=== PATIENT | female | born 1950 | race Caucasian/White ===

== ENCOUNTER 2017-02-21 05:41 | Inpatient (IN) | payer MEDICARE, MEDICAID ==
[2017-02-21] VITALS (14 sets, daily range): BP systolic 90–124; BP diastolic 47–88
[~2017-02-21] VITALS: Ht 157.5 cm; Wt 81.6 kg
[~2017-02-21 05:41] MED LIST: ACETAMINOPHEN-1 EAC1 ORAL; LEVOTHYROXINE75 MCG ORAL; [UNRECOGNIZED DRUG - MIXTURE] PO
[2017-02-21] MEDS ORDERED: Duramorph PF 5mg/10ml amp ONE (06:39)
[2017-02-21] MEDS ORDERED: Vancomycin 1gm inj IVPB ONE (06:58)
[2017-02-21] MEDS ORDERED: cefOXitin 2gm Inj ONE (06:58)
[2017-02-21] MEDS ORDERED: Ketorolac 30mg Inj ONE (07:00)
[2017-02-21] MEDS ORDERED: Glycopyrrolate 0.2mg/ml 1ml Vial ONE (07:00)
[2017-02-21] MEDS ORDERED: Neostigmine 1mg/ml 10ml Inj ONE (07:00)
[2017-02-21] MEDS ORDERED: fentaNYL 100 mcg/2 mL IV ONE (07:00)
[2017-02-21] MEDS ORDERED: LR 1000ml ONE (07:00)
[2017-02-21] MEDS ORDERED: NS Irrig 1000ml ONE (07:00)
[2017-02-21] MEDS ORDERED: Propofol 200mg/20ml IV ONE (07:00)
[2017-02-21] MEDS ORDERED: Midazolam 2mg/2ml Inj ONE (07:00)
[2017-02-21] MEDS ORDERED: Succinylcholine 20mg/ml 10ml vial ONE (07:00)
[2017-02-21] MEDS ORDERED: Sterile Water Irrig 1000ml IRRIG ONE (07:00)
[2017-02-21] MEDS ORDERED: Morphine Sulfate 10mg/ml Inj ONE (07:00)
[2017-02-21] MEDS ORDERED: Zemuron 50mg/5ml Inj IV ONE (07:00)
--- NOTE | 2017-02-21 07:14 | Pre-Procedure Note/Attestation ---
Pre-Procedure Note/Attestation Complete Prior to Procedure Planned Procedure: not applicable Procedure Narrative: total abdominal hysterectomy and bilateral salpingoopherectomy Indications for Procedure Pre-Operative Diagnosis: large pelvic mass Attestation I attest that I discussed the nature of the procedure; its benefits; risks and complications; and alternatives (and the risks and benefits of such alternatives ), prior to the procedure, with the patient (or the patient's legal help desk representative). I attest that, if there was a reasonable possibility of needing a blood transfusion, the patient (or the patient's legal help desk representative) was given the [facility] standardized written summary, pursuant to the Neymar Jillian Blood Safety Act ([place] Health and Safety Code # 1645, as amended). I attest that I re-evaluated the patient just prior to the surgery and that there has been no change in the patient's H&P, except as documented below: TOMASZ HINSON Feb 21, 2017 07:14
[2017-02-21] MEDS ORDERED: Zolpidem 5mg tab ORAL PRN (07:15)
[2017-02-21] MEDS ORDERED: DiphenhydrAMINE 50mg/ml Inj IVP PRN ×2 (07:15→08:45)
[2017-02-21] MEDS ORDERED: NS Irrig 1000ml IRRIG ONE (07:40)
[2017-02-21] MEDS ORDERED: Albuterol 90mcg Inhaler 8gm INH ONE (08:28)
[2017-02-21] MEDS ORDERED: LR 1000ml 1,000 ML IVLG SCH (08:31)
--- NOTE | 2017-02-21 08:31 | Anethesia Preoperative Eval ---
Anesthesia Pre-op PMH/ROS General Date of Evaluation: Feb 21, 2017 Time of Evaluation: 06:50 Anesthesiologist: Deborah ASA Score: ASA 3 Mallampati Score Class I : Soft palate, uvula, fauces, pillars visible Class II: Soft palate, uvula, fauces visible Class III: Soft palate, base of uvula visible Class IV: Only hard plate visible Mallampati Classification: Class II Surgeon: Maryam Diagnosis: Uterine mass Surgical Procedure: Total abdominal hysterectomy Anesthesia History: none Social History: current smoker Family History: no anesthesia problems Allergies: Coded Allergies: PENICILLINS (Verified Allergy, Severe, 02/19/17) GENERAL SWELLING AND ITCHING, DIFF BREATHING Past Medical History Cardiovascular: Reports: HTN, Denies: CAD, MT, valve dz, arrhythmia, other Pulmonary: Reports: COPD, Denies: asthma, BENITO, other Gastrointestinal/Genitourinary: Reports: GERD, Denies: CRI, ESRD, other Neurologic/Psychiatric: Denies: dementia, CVA, depression/anxiety, TIA, other Endocrine: Reports: hypothyroidism, Denies: DM, steroids, other HEENT: Denies: cataract (L), cataract (R), glaucoma, KIPNUK (L), KIPNUK (R), other Hematology/Immune: Reports: bleeding disorder - elevated PTT possible artifact not on any anticoagulants, Denies: anemia, DVT, other Musculoskeletal/Integumentary: Reports: DJD, Denies: OA, RA, DDD, edema, other Other: obesity PMH Narrative: as above PSxH Narrative: appendectomy, Anesthesia Pre-op Phys. Exam Physician Exam Last Vital Signs Date Time Temp Pulse Resp B/P (MAP) Pulse Ox O2 Delivery O2 Flow Rate FiO2 02/21/17 06:18 97.3 57 18 124/88 97 Constitutional: NAD Neurologic: CN 2-12 intact Cardiovascular: RRR, no M/R/G Respiratory: other - some wheezing bilaterally Gastrointestinal: other - obesity Airway Exam Mallampati Score: Class II MO: limited Neck: stiff ROM: limited Teeth: missing Dentures: upper, lower Anesthesia Pre-op A/P Labs see chart Studies Pre-op Studies: EKG - NSR, CXR - WNL Risk Assessment & Plan Assessment: ASA 3 Plan: GA with ETT SAB with intrathecal morphine Status Change Before Surgery: No Pre-Antibiotics Drug: Vanco 1gr. Given Within 1 Hr of Incision: Yes Time Given: 08:20 EVERETT PLASCENCIA M.D. Feb 21, 2017 08:31
[2017-02-21] MEDS ORDERED: Meperidine 25mg/0.5ml Inj (FOR RIGORS ONLY) IV PRN (08:45)
[2017-02-21] MEDS ORDERED: Albuterol ud Inhalation HHN ONE (08:45)
[2017-02-21] MEDS ORDERED: Ketorolac 30mg Inj IV PRN ×2 (08:45→12:30)
[2017-02-21] MEDS ORDERED: Hydromorphone 0.5mg/0.5ml inj IVP PRN (08:45)
[2017-02-21] MEDS ORDERED: Midazolam 2mg/2ml Inj IVP PRN (08:45)
--- NOTE | 2017-02-21 09:31 | Brief Operative Note ---
Immediate Post Operative Note Operative Note Pre-op Diagnosis: large pelvic mass Procedure: total abdominal hysterectomy/ bilateral salpingoopherectomy Post-op Diagnosis: same and right ovarian solid neoplasm Surgeon: ruthie [employer] Instructor: ceferino Anesthesiologist: evan Anesthesia: general Specimen: yes Complications: none Condition: stable Fluids: 1200 cc Estimated Blood Loss: volume - 200 cc Drains: none Implant(s) used?: No TOMASZ HINSON Feb 21, 2017 09:31
--- NOTE | 2017-02-21 09:32 | Pre-op HX & Phy Repo 2 SIG ---
DATE OF ADMISSION: 02/21/2017 PREOPERATIVE DIAGNOSIS: Uterine neoplasm of uncertain potential. History Of Present Illness: The patient is a 66-year-old, who presented to me in November of this year secondary to MRI that was read with a large posterior uterine mass of unknown etiology. MRI was performed and it was uncertain that the mass was fibroid or a different type of neoplasm. The patient was counseled extensively. expectant management was offered, however, she would like to undergo abdominal hysterectomy and bilateral salpingo-oophorectomy. PAST MEDICAL HISTORY: Hypertension and hypothyroidism. PAST SURGICAL HISTORY: None. Medications: The patient is taking levothyroxine 75 mcg and lisinopril 20/12.5 one daily. Social History: This patient smokes [id number]-a-day. She drinks socially. PHYSICAL EXAMINATION: Vital Signs: Height 5 feet 4 inches, weight 180, blood pressure 160/80, and respiratory rate 18. General: female, appearing stated age, in no acute distress. HEENT: Pupils are equal and reactive to light. LUNGS: Clear to auscultation bilaterally. CARDIAC: Regular rate and rhythm. ABDOMEN: Soft, nondistended, and obese. Pelvic: Bimanual exam, 16-week uterus with a posterior mass. It is impossible to tell on pelvic exam whether the mass is adnexal or uterine in origin. RECTAL: No masses. EXTREMITIES: No cords. No cyanosis. No edema. Laboratory Data: Labs performed on 01/16/2017, Pap smear negative. CBC, hemoglobin 14, white count 5, and platelets 204,000. TSH 0.44. CA-125 6.5. CEA 1.6. Assessment: A 66-year-old with a large pelvic posterior mass of unknown potential. Plan: Total abdominal hysterectomy and bilateral salpingo-oophorectomy. Alia Francisco M.D. DR: CM JOB#: [id number] CC: LUIS
--- NOTE | 2017-02-21 10:30 | Immediate Post-Op Evaluation ---
Immediate Post-Op Evalulation Immediate Post-Op Evalulation Procedure: Total abdominal hysterectomy Date of Evaluation: Feb 21, 2017 Time of Evaluation: 09:48 IV Fluids: 1500 Blood Products: Hespan 500 Estimated Blood Loss: 150 Urinary Output: 200 Blood Pressure Systolic: 116 Blood Pressure Diastolic: 72 Pulse Rate: 76 Respiratory Rate: 22 O2 Sat by Pulse Oximetry: 98 Temperature (Fahrenheit): 97.8 Pain Score (1-10): 2 Nausea: No Vomiting: No Complications none Patient Status: reacts, patent, extubated, none Hydration Status: adequate EVERETT PLASCENCIA M.D. Feb 21, 2017 10:30
[2017-02-21] MEDS ORDERED: HYDROmorphone 1mg/ml Carpuject IVP PRN (12:30)
[2017-02-21] MEDS ORDERED: Metoclopramide 10mg/2ml Inj IVP PRN (12:30)
[2017-02-21] MEDS: Norco 5mg/325mg tab ORAL PRN (12:36)
[2017-02-21] MEDS: D5 1/2NS w/KCl 20mEq 1,000 ML IV SCH ×2 (14:24→23:16)
[2017-02-21] MEDS ORDERED: ceFAZolin sod 1 GM in D5W 55 ML IV ONE (16:00)
[2017-02-21 16:17] LABS: BASOPHILS % (AUTO) 1.2 % (0.0-2.0); EOSINOPHILS % (AUTO) 1.2 % (0.0-3.0); LYMPHOCYTES % (AUTO) 19.8 % (20.0-45.0); MEAN CORPUSCULAR HEMOGLOBIN 35.8 PG (27.0-31.0); MEAN CORPUSCULAR HGB CONC 36.4 G/DL (32.0-36.0); MEAN CORPUSCULAR VOLUME 98 FL (80-99); MEAN PLATELET VOLUME 6.5 FL (6.5-10.1); MONOCYTES % (AUTO) 9.4 % (1.0-10.0); NEUTROPHILS % (AUTO) 68.5 % (45.0-75.0); PLATELET COUNT 150 K/UL (150-450); RED CELL DISTRIBUTION WIDTH 11.7 % (11.6-14.8); WHITE BLOOD COUNT 7.4 K/UL (4.8-10.8)
[2017-02-21] MEDS: Docusate 100mg cap ORAL SCH (17:11)
--- NOTE | 2017-02-21 18:17 | 48 Hour Post Anesthesia Eval ---
Post Anesthesia Evaluation Procedure: Total abdominal hysterectomy Date of Evaluation: Feb 21, 2017 Time of Evaluation: 18:16 Blood Pressure Systolic: 128 0: 58 Pulse Rate: 74 Respiratory Rate: 22 Temperature (Fahrenheit): 97.6 O2 Sat by Pulse Oximetry: 98 Airway: patent Nausea: No Vomiting: No Pain Intensity: 3 Hydration Status: adequate Cardiopulmonary Status: stable Mental Status/LOC: patient returned to baseline Follow-up Care/Observations: n/a Post-Anesthesia Complications: none Follow-up care needed: N/A EVERETT PLASCENCIA M.D. Feb 21, 2017 18:17
[2017-02-22] VITALS: BP 130/68
[2017-02-22 04:00] VITALS: BP 121/74
[2017-02-22] MEDS: Norco 5mg/325mg tab ORAL PRN ×2 (05:11→20:38)
[2017-02-22] MEDS: D5 1/2NS w/KCl 20mEq 1,000 ML IV SCH ×2 (06:23→14:00)
[2017-02-22 06:53] LABS: BASOPHILS % (AUTO) 1.7 % (0.0-2.0); EOSINOPHILS % (AUTO) 3.2 % (0.0-3.0); LYMPHOCYTES % (AUTO) 28.1 % (20.0-45.0); MEAN CORPUSCULAR HEMOGLOBIN 34.7 PG (27.0-31.0); MEAN CORPUSCULAR HGB CONC 34.9 G/DL (32.0-36.0); MEAN CORPUSCULAR VOLUME 99 FL (80-99); MONOCYTES % (AUTO) 11.4 % (1.0-10.0); NEUTROPHILS % (AUTO) 55.7 % (45.0-75.0); PLATELET COUNT 155 K/UL (150-450); RED BLOOD COUNT 3.67 M/UL (4.20-5.40); RED CELL DISTRIBUTION WIDTH 11.3 % (11.6-14.8); WHITE BLOOD COUNT 5.2 K/UL (4.8-10.8)
[2017-02-22 07:05] LABS: ANION GAP 6 (5-15); CALCIUM 7.7 mg/dL (8.6-10.2); CARBON DIOXIDE 28 mEQ/L (20-30); CHLORIDE 108 mEQ/L (98-107); CREATININE 0.7 mg/dL (0.5-0.9); GLOMERULAR FILTRATION RATE > 60 mL/min (>60); HEMOLYSIS 7; POTASSIUM 3.9 mEQ/L (3.4-4.9); SODIUM 142 mEQ/L (135-145)
[2017-02-22 08:00] VITALS: BP 115/69
[2017-02-22] MEDS: Docusate 100mg cap ORAL SCH ×2 (08:53→16:57)
[2017-02-22] MEDS: Lisinopril 20mg tab ORAL SCH (08:53)
--- NOTE | 2017-02-22 11:11 | General Surgery Progress Note ---
General Surgery-Progress Note Subjective Procedure Performed total abdominal hysterectomy/ bilateral salpingoopherectomy Symptoms: worse, improved Objective Last 24 Hour Vital Signs Date Time Temp Pulse Resp B/P (MAP) Pulse Ox O2 Delivery O2 Flow Rate FiO2 02/22/17 09:20 98.7 02/22/17 08:53 121/74 02/22/17 08:00 99.2 59 16 115/69 94 Room Air 02/22/17 06:10 98.7 02/22/17 04:00 98.0 63 19 121/74 96 Room Air 02/22/17 00:00 98.7 63 18 130/68 95 Room Air 02/21/17 20:00 98.0 70 18 120/70 94 Room Air 02/21/17 18:17 74 22 98 02/21/17 16:43 98.0 60 20 108/62 99 Room Air 02/21/17 13:50 98.0 68 20 95/55 99 Room Air 02/21/17 11:50 97.9 61 18 91/50 100 Room Air I&O Intake and Output 02/22/17 02/23/17 19:00 07:00 Intake Total 375 ml Balance 375 ml Intake Oral 250 ml IV Total 125 ml # Voids 1 Wound: clean, dry, intact Drains: none Cardiovascular: RSR Respiratory: clear Abdomen: soft, non-tender Extremities: no edema, no tenderness, no cyanosis Laboratory Tests Test 02/21/17 16:00 02/22/17 04:50 White Blood Count 7.4 K/UL (4.8-10.8) 5.2 K/UL (4.8-10.8) Red Blood Count 3.60 M/UL (4.20-5.40) L 3.67 M/UL (4.20-5.40) L Hemoglobin 12.9 G/DL (12.0-16.0) 12.7 G/DL (12.0-16.0) Hematocrit 35.5 % (37.0-47.0) L 36.5 % (37.0-47.0) L Mean Corpuscular Volume 98 FL (80-99) 99 FL (80-99) Mean Corpuscular Hemoglobin 35.8 PG (27.0-31.0) H 34.7 PG (27.0-31.0) H Mean Corpuscular Hemoglobin Concent 36.4 G/DL (32.0-36.0) H 34.9 G/DL (32.0-36.0) Red Cell Distribution Width 11.7 % (11.6-14.8) 11.3 % (11.6-14.8) L Platelet Count 150 K/UL (150-450) 155 K/UL (150-450) Mean Platelet Volume 6.5 FL (6.5-10.1) 7.0 FL (6.5-10.1) Neutrophils (%) (Auto) 68.5 % (45.0-75.0) 55.7 % (45.0-75.0) Lymphocytes (%) (Auto) 19.8 % (20.0-45.0) L 28.1 % (20.0-45.0) Monocytes (%) (Auto) 9.4 % (1.0-10.0) 11.4 % (1.0-10.0) H Eosinophils (%) (Auto) 1.2 % (0.0-3.0) 3.2 % (0.0-3.0) H Basophils (%) (Auto) 1.2 % (0.0-2.0) 1.7 % (0.0-2.0) Sodium Level 142 mEQ/L (135-145) Potassium Level 3.9 mEQ/L (3.4-4.9) Chloride Level 108 mEQ/L (98-107) H Carbon Dioxide Level 28 mEQ/L (20-30) Anion Gap 6 (5-15) Blood Urea Nitrogen 7 mg/dL (7-23) Creatinine 0.7 mg/dL (0.5-0.9) Estimat Glomerular Filtration Rate > 60 mL/min (>60) Glucose Level 103 mg/dL (74-106) Calcium Level 7.7 mg/dL (8.6-10.2) L Assessment Post-op Diagnosis same and right ovarian solid neoplasm Plan Additional Comments post GIANFRANCO/BSO ambulate toradol 30 q 6 advance diet d/c in am if afebrile and tolerating ambulation TOMASZ HINSON Feb 22, 2017 11:11
[2017-02-22] MEDS: Ketorolac 30mg Inj IV SCH ×3 (11:34→23:38)
[2017-02-22 12:00] VITALS: BP 142/78
[2017-02-22 16:00] VITALS: BP 154/89
--- NOTE | 2017-02-22 17:00 | Operative Note - Dictated ---
DATE OF OPERATION: 02/21/2017 PREOPERATIVE DIAGNOSIS: Large pelvic mass. POSTOPERATIVE DIAGNOSIS: Right solid ovarian mass. PROCEDURE: Total abdominal hysterectomy, bilateral salpingo-oophorectomy. SURGEON: Alia Francisco M.D. SIDE PANEL PADDER: Yoselin Fay M.D. ANESTHESIA: General endotracheal and spinal. ANESTHESIOLOGIST: Camron Cabrera M.D. ESTIMATED BLOOD LOSS: 200 mL. URINE OUTPUT: 300 mL clear urine. PROCEDURE IN DETAIL: After ensuring informed consent, the patient was taken to the operating room, where general anesthesia was induced. The patient was sterilely prepped and draped in dorsal supine position. A small low-transverse incision was made and carried down to the level of the fascia with the Bovie. The fascia was nicked in the midline and incision was extended laterally. Fascia was tented up and both bluntly and sharply dissected off of the underlying rectus muscles. Rectus muscles were parted in the midline and peritoneum was identified and entered sharply. Mass was identified and it was recognized that it arose from the right ovary. Washings were performed. The solid mass was brought into the incision and using two Claire clamps, was clamped and cut and pathology was called for frozen section. The uterus was grasped with a single-tooth tenaculum. Nikita retractor was placed and bowel was packed away with three laps. Next, first left round ligament was grasped, cut, and suture ligated. The vesicouterine peritoneum was identified, incised and the bladder was pushed away from the lower uterine segment and cervix. A window was made in the broad ligament. Two Claire clamps were placed through the infundibulopelvic ligament, which was skeletonized, transected, and then double ligated. Attention was turned to the opposite side where likewise round ligament was grasped, cut, and suture ligated. A window was made in the broad ligament. The infundibulopelvic on that side was grasped, cut and suture ligated x2. Vesicouterine peritoneum was incised and pushed down from the lower uterine segment and cervix. Next, right ovarian artery was skeletonized grasped with slightly curved zeppelins, cut and suture ligated x2. This was repeated on the left side. Then using straight zeppelins tissue along the cardinal ligament was grasped, cut and suture ligated until cervix was reached. Curved zeppelins were used to grasp around the vaginal angles. The vaginal angle was cut and suture ligated. The vagina was entered and uterus and cervix was amputated with the César scissors. The vagina was closed with 0 Vicryl. At the end of the procedure, all instrument and lap counts were correct x3. Please note that the laps were removed as well as the Nikita retractor. Then the peritoneum was closed with 2-0 Vicryl. Fascia was closed with 0 Vicryl, subcutaneous tissue was closed with 3-0 plain. Skin was closed with 4-0 Monocryl and Steri-Strips. Again at the end of the procedure, all instrument and lap counts were correct x2. The patient was taken to the recovery area extubated and in stable condition. Alia Francisco M.D. DR: ARMANDO JOB#: [id number] CC: LUIS
[2017-02-22 20:00] VITALS: BP 139/70
[2017-02-23] VITALS: BP 130/71
--- NOTE | 2017-02-23 01:15 | Discharge Summary ---
DATE OF ADMISSION: 02/21/2017 PREOPERATIVE DIAGNOSIS: Right ovarian solid neoplasm. POSTOPERATIVE DIAGNOSIS: Right ovarian solid neoplasm. Procedure: Total abdominal hysterectomy, bilateral salpingo-oophorectomy. The patient admitted on 02/21/2017 and discharged on 02/23/2017 and postop day 2, ambulating, voiding, spontaneously, and in stable condition. She was discharged with [place] and ibuprofen for pain and is to follow up with me in the office in one week. The patient is to resume her normal antihypertensive medication and Synthroid. Alia Francisco M.D. DR: ARMANDO JOB#: [id number] CC:
[2017-02-23 04:00] VITALS: BP 133/84
[2017-02-23] MEDS: Ketorolac 30mg Inj IV SCH ×2 (05:40→11:41)
[2017-02-23 09:05] VITALS: BP 156/76
[2017-02-23 09:14] VITALS: BP 156/76
[2017-02-23] MEDS: Docusate 100mg cap ORAL SCH (09:14)
[2017-02-23] MEDS: Lisinopril 20mg tab ORAL SCH (09:14)
[2017-02-23] MEDS ORDERED: NS Irrig 1000ml ONE (12:14)
== END 2017-02-23 12:15 | disposition home or self-care (01) | DRG 738 ==
LOC: SDSOVERFLO 05:41 → 3E 10:50
PROC: 0UTC0ZZ Resection of Cervix, Open Approach (ICD-10-PCS; principal; 2017-02-21 07:00)
PROC: 0UT70ZZ Resection of Bilateral Fallopian Tubes, Open Approach (ICD-10-PCS; principal; 2017-02-21 07:00)
PROC: 0UT20ZZ Resection of Bilateral Ovaries, Open Approach (ICD-10-PCS; principal; 2017-02-21 07:00)
PROC: 0UT90ZZ Resection of Uterus, Open Approach (ICD-10-PCS; principal; 2017-02-21 07:00)
DX: D39.11 Neoplasm of uncertain behavior of right ovary (principal); I10 Essential (primary) hypertension; E03.9 Hypothyroidism, unspecified; F17.200 Nicotine dependence, unspecified, uncomplicated
CPT/HCPCS: 36415; 80048; 85025; 86850; 86900; 86901; 87081; 94003; 94150; J2250; J2710